=== PATIENT | male | born 1975 | race Caucasian/White ===

== ENCOUNTER 2019-04-11 12:53 | Emergency (ER) | payer OTHER ==
[2019-04-11] MEDS ORDERED: SODIUM CHLORIDE 0.9% 1,000 ML IV STA (13:34)
--- NOTE | 2019-04-11 13:45 | ED ---
General Adult HPI - General Chief complaint: Neuro Symptoms/Deficit Stated complaint: Headache Time Seen by Provider: 04/11/19 13:26 Source: patient, RN notes reviewed Mode of arrival: ambulatory Limitations: no limitations - History of Present Illness Initial comments: Patient is a pleasant 43-year-old male presenting to the emergency Department with headache. Symptoms have occurred several times over the past week. Patient does have history of chronic headaches however has been doing well for over a past year. Patient has had previous head CT for this. Had discomfort is mostly posterior. Discomfort is mild this time. Discomfort gets worse patient does have associated nausea and vomiting. Patient also has associated blurred vision and lightheadedness. Patient also has associated tingling of his arms and mouth. Both sides. No isolated area of weakness. No confusion. No fevers. - Related Data Home Medications Medication Instructions Recorded Confirmed No Known Home Medications 04/11/19 04/11/19 Allergies Allergy/AdvReac Type Severity Reaction Status Date / Time No Known Allergies Allergy Verified 04/11/19 13:20 Review of Systems ROS Statement: Those systems with pertinent positive or pertinent negative responses have been documented in the HPI. ROS Other: All systems not noted in ROS Statement are negative. Constitutional: Denies: fever Eyes: Reports: other (Blurred vision). Denies: eye pain ENT: Denies: ear pain Respiratory: Denies: cough Cardiovascular: Denies: chest pain Endocrine: Denies: fatigue Gastrointestinal: Reports: nausea, vomiting. Denies: abdominal pain Genitourinary: Denies: dysuria Musculoskeletal: Denies: back pain Skin: Denies: rash Neurological: Reports: as per HPI, headache, paresthesias. Denies: weakness, confusion Past Medical History Past Medical History: No Reported History History of Any Multi-Drug Resistant Organisms: None Reported Past Surgical History: No Surgical Hx Reported Past Psychological History: No Psychological Hx Reported Smoking Status: Never smoker Past Alcohol Use History: None Reported Past Drug Use History: Marijuana General Exam Limitations: no limitations General appearance: alert, in no apparent distress Head exam: Present: atraumatic, normocephalic Eye exam: Present: normal appearance, PERRL, EOMI. Absent: nystagmus ENT exam: Present: normal oropharynx Neck exam: Present: normal inspection. Absent: tenderness, meningismus Respiratory exam: Present: normal lung sounds bilaterally Cardiovascular Exam: Present: regular rate, normal rhythm GI/Abdominal exam: Present: soft. Absent: tenderness Extremities exam: Present: normal inspection Neurological exam: Present: alert, oriented X3, CN II-XII intact. Absent: motor sensory deficit Expanded Neurological exam: Present: protecting the airway Patient oriented to: Present: person, place, time Speech: Present: fluid speech Cranial nerves: EOM's Intact: Normal, Facial Sensation: Normal Cerebellar function: Finger to Nose: Normal Sensory exam: Upper Extremity Light Touch: Normal, Lower Extremity Light Touch: Normal Motor strength exam: RUE: 5, LUE: 5, RLE: 5, LLE: 5 Eye Response: (4) open spontaneously Motor Response: (6) obeys commands Verbal Response: (5) oriented Psychiatric exam: Present: normal affect, normal mood Skin exam: Present: normal color Course Vital Signs 04/11/19 13:03 Temperature 98.1 F Pulse Rate 85 Respiratory 16 Rate Blood Pressure 159/98 O2 Sat by Pulse 99 Oximetry Medical Decision Making - Medical Decision Making Patient reevaluated and resting comfortably in bed. Patient updated on results and need for follow-up. - Lab Data Result diagrams: 04/11/19 13:40 04/11/19 13:40 Lab Results 04/11/19 04/11/19 04/11/19 Range/Units 13:40 13:40 13:40 WBC 8.4 (3.8-10.6) k/uL RBC 4.96 (4.30-5.90) m/uL Hgb 15.9 (13.0-17.5) gm/dL Hct 47.5 (39.0-53.0) % MCV 95.7 (80.0-100.0) fL MCH 32.0 (25.0-35.0) pg MCHC 33.4 (31.0-37.0) g/dL RDW 14.3 (11.5-15.5) % Plt Count 268 (150-450) k/uL Neutrophils % 69 % Lymphocytes % 22 % Monocytes % 7 % Eosinophils % 1 % Basophils % 1 % Neutrophils # 5.7 (1.3-7.7) k/uL Lymphocytes # 1.8 (1.0-4.8) k/uL Monocytes # 0.6 (0-1.0) k/uL Eosinophils # 0.1 (0-0.7) k/uL Basophils # 0.1 (0-0.2) k/uL PT 11.1 (9.0-12.0) sec INR 1.0 (<1.2) APTT 25.8 (22.0-30.0) sec Sodium 141 (137-145) mmol/L Potassium 4.0 (3.5-5.1) mmol/L Chloride 106 (98-107) mmol/L Carbon Dioxide 24 (22-30) mmol/L Anion Gap 11 mmol/L BUN 12 (9-20) mg/dL Creatinine 0.88 (0.66-1.25) mg/dL Est GFR (CKD-EPI)AfAm >90 (>60 ml/min/1.73 sqM) Est GFR (CKD-EPI)NonAf >90 (>60 ml/min/1.73 sqM) Glucose 101 H (74-99) mg/dL Calcium 9.8 (8.4-10.2) mg/dL Total Bilirubin 0.9 (0.2-1.3) mg/dL AST 17 (17-59) U/L ALT 26 (21-72) U/L Alkaline Phosphatase 58 (38-126) U/L Total Protein 7.9 (6.3-8.2) g/dL Albumin 4.6 (3.5-5.0) g/dL - Radiology Data Radiology results: report reviewed (Computed tomography scan of the brain shows left knee for hypertension UA show in which could be artifact, this is confirmed with CT angios of the head and neck it is otherwise unremarkable. Hypoplasia right vertebral artery. no occlusion or aneurysm.) Disposition Clinical Impression: Headache Disposition: HOME SELF-CARE Condition: Stable Instructions (If sedation given, give patient instructions): Acute Headache (ED) Additional Instructions: Please follow-up with primary care physician in the next day or 2 for recheck. Please also follow-up with neurologist in the next couple days for recheck. Return for uncontrolled pain, weakness or confusion, worsening or changing symptoms or other concerns. Is patient prescribed a controlled substance at d/c from ED?: No Referrals: Terra Gaming MD [STAFF PHYSICIAN] - 1-2 days Dioni Farley MD [Medical Doctor] - 1-2 days Time of Disposition: 16:15
[2019-04-11 14:12] LABS: Basophils # (A) 0.1 k/uL (0-0.2); Basophils % (A) 1 %; Eosinophils # (A) 0.1 k/uL (0-0.7); Eosinophils % (A) 1 %; HCT 47.5 % (39.0-53.0); HGB 15.9 gm/dL (13.0-17.5); Lymphocytes # (A) 1.8 k/uL (1.0-4.8); Lymphocytes % (A) 22 %; MCHC 33.4 g/dL (31.0-37.0); MCV 95.7 fL (80.0-100.0); Mean Platelet Volume 7.6; Monocytes # (A) 0.6 k/uL (0-1.0); Monocytes % (A) 7 %; Neutrophils # (A) 5.7 k/uL (1.3-7.7); Neutrophils % (A) 69 %; Platelet Count 268 k/uL (150-450); RBC 4.96 m/uL (4.30-5.90); RDW 14.3 % (11.5-15.5); WBC 8.4 k/uL (3.8-10.6)
[2019-04-11 14:17] LABS: ALT 26 U/L (21-72); AST 17 U/L (17-59); African American GFR (CKD) >90 (>60 ml/min/1.73 sqM); Albumin 4.6 g/dL (3.5-5.0); Alkaline Phosphatase 58 U/L (38-126); Anion Gap 11 mmol/L; Blood Urea Nitrogen 12 mg/dL (9-20); Calcium 9.8 mg/dL (8.4-10.2); Carbon Dioxide 24 mmol/L (22-30); Chloride 106 mmol/L (98-107); Glucose 101 mg/dL (74-99); Sodium 141 mmol/L (137-145); Total Bilirubin 0.9 mg/dL (0.2-1.3); Total Protein 7.9 g/dL (6.3-8.2)
[2019-04-11 14:20] LABS: Partial Thromboplastin Time 25.8 sec (22.0-30.0); Prothrombin Time 11.1 sec (9.0-12.0)
--- NOTE | 2019-04-11 15:15 | CT ---
EXAMINATION TYPE: CT brain wo con DATE OF EXAM: 04/11/2019 COMPARISON: CT of the brain dated 01/11/2012 and MRI of the brain dated 01/22/2012 HISTORY: loss of vision when supine CT DLP: 1052 mGycm. Automated Exposure Control for Dose Reduction was Utilized. TECHNIQUE: CT scan of the head is performed without contrast. FINDINGS: Hyperattenuation in the left vertebral artery V4 segment with tortuosity. There is no acu te intracranial hemorrhage, mass effect, or midline shift identified. The ventricles and sulci are w ithin normal limits in size. The globes are intact and the visualized sinuses are clear. IMPRESSION: No acute intracranial hemorrhage, mass effect, or midline shift is seen. Left V4 hyperattenuation, which is best seen on axial image 9. Differential for these findings includ e posterior fossa artifact, dissection or occlusion. If symptoms persist, consider MRI of the brain w ithout contrast and MRA of the head and neck.
--- NOTE | 2019-04-11 15:43 | CT ---
EXAMINATION TYPE: CT angio head neck DATE OF EXAM: 04/11/2019 HISTORY: vision loss when supine COMPARISON: CT of the head from the same day CT DLP: 352 mGycm. Automated Exposure Control for Dose Reduction was Utilized. TECHNIQUE: CTA scan of the neck is performed with IV Contrast, patient injected with 50 mL of Isovue 370, axial images are obtained, coronal and sagittal reformatted images are reviewed. Three-D recons tructed images are created on an independent workstation and reviewed. FINDINGS: Carotid/Vascular Structures: Posterior the aorta appears are normal. Normal three-vessel takeoff. Ritesh ateral origins of the vertebral arteries are patent. Hypoplasia of the right vertebral artery. Bilate ral common carotid arteries are patent. Internal carotid arteries are patent. External carotid arteri es are patent. Previously described V4 abnormality demonstrates normal contrast enhancement and was r elated to posterior fossa artifact. Basilar artery is patent. Posterior cerebral arteries are patent. [place] appears patent. Other: Visualized upper lungs are clear. Neck soft tissues appear within normal limits. No enhancing lesion within the brain. IMPRESSION: V4 abnormality described on recent noncontrast CT of the head are related to posterior fossa artifact . Hypoplasia of the right vertebral artery. No occlusion or aneurysm.
[2019-04-11 16:26] VITALS: BP 138/90; PULSE 68; RESP 13; TEMP 98
== END 2019-04-11 16:19 | disposition home or self-care (01) ==
LOC: EC 12:53
DX: R51 Headache (principal); R11.2 Nausea with vomiting, unspecified; R42 Dizziness and giddiness; R20.2 Paresthesia of skin
CPT/HCPCS: 36415; 80053; 85025; 85610; 85730; 70496; 70450; 70498; 99284; 96360; Q9967

== ENCOUNTER 2021-02-24 03:11 | Emergency (ER) | payer OTHER ==
[2021-02-24 03:18] VITALS: RESP 16; TEMP 98.8
[2021-02-24] MEDS ORDERED: MORPHINE SULFATE 4 MG/ML SYRINGE IV STA (03:22)
[2021-02-24] MEDS ORDERED: KETOROLAC 15 MG/ML 1 ML VIAL IVP STA (03:22)
[2021-02-24] MEDS ORDERED: SODIUM CHLORIDE 0.9% 1,000 ML IV STA (03:22)
--- NOTE | 2021-02-24 03:34 | ED ---
Abdominal Pain HPI - General Chief Complaint: Abdominal Pain Stated Complaint: Flank pain Time Seen by Provider: 02/24/21 03:22 Source: patient, EMS Mode of arrival: EMS Limitations: no limitations - Related Data Home Medications Medication Instructions Recorded Confirmed No Known Home Medications 04/11/19 04/11/19 Allergies Allergy/AdvReac Type Severity Reaction Status Date / Time No Known Allergies Allergy Verified 02/24/21 03:47 Review of Systems ROS Statement: Those systems with pertinent positive or pertinent negative responses have been documented in the HPI. ROS Other: All systems not noted in ROS Statement are negative. Past Medical History Past Medical History: No Reported History History of Any Multi-Drug Resistant Organisms: None Reported Past Surgical History: No Surgical Hx Reported Past Psychological History: No Psychological Hx Reported Smoking Status: Never smoker Past Alcohol Use History: None Reported Past Drug Use History: Marijuana General Exam Limitations: no limitations Course Vital Signs 02/24/21 02/24/21 03:12 04:22 Temperature 98.8 F Pulse Rate 73 60 Respiratory 16 16 Rate Blood Pressure 161/109 110/77 O2 Sat by Pulse 100 98 Oximetry Medical Decision Making - Lab Data Result diagrams: 02/24/21 03:35 02/24/21 03:35 Lab Results 02/24/21 02/24/21 Range/Units 03:35 03:35 WBC 16.1 H (3.8-10.6) k/uL RBC 4.47 (4.30-5.90) m/uL Hgb 14.5 (13.0-17.5) gm/dL Hct 41.5 (39.0-53.0) % MCV 93.0 (80.0-100.0) fL MCH 32.5 (25.0-35.0) pg MCHC 34.9 (31.0-37.0) g/dL RDW 11.9 (11.5-15.5) % Plt Count 230 (150-450) k/uL MPV 7.4 Neutrophils % 87 % Lymphocytes % 7 % Monocytes % 5 % Eosinophils % 1 % Basophils % 0 % Neutrophils # 14.0 H (1.3-7.7) k/uL Lymphocytes # 1.1 (1.0-4.8) k/uL Monocytes # 0.8 (0-1.0) k/uL Eosinophils # 0.2 (0-0.7) k/uL Basophils # 0.0 (0-0.2) k/uL Sodium 136 L (137-145) mmol/L Potassium 3.9 (3.5-5.1) mmol/L Chloride 105 (98-107) mmol/L Carbon Dioxide 23 (22-30) mmol/L Anion Gap 8 mmol/L BUN 13 (9-20) mg/dL Creatinine 1.07 (0.66-1.25) mg/dL Est GFR (CKD-EPI)AfAm >90 (>60 ml/min/1.73 sqM) Est GFR (CKD-EPI)NonAf 85 (>60 ml/min/1.73 sqM) Glucose 144 H (74-99) mg/dL Calcium 9.2 (8.4-10.2) mg/dL Total Bilirubin 0.9 (0.2-1.3) mg/dL AST 24 (17-59) U/L ALT 15 (4-49) U/L Alkaline Phosphatase 52 (38-126) U/L Total Protein 7.0 (6.3-8.2) g/dL Albumin 4.2 (3.5-5.0) g/dL Amylase 47 (30-110) U/L Lipase 71 (23-300) U/L Disposition Clinical Impression: Abdominal pain, Left ureteral stone Disposition: HOME SELF-CARE Condition: Good Instructions (If sedation given, give patient instructions): Kidney Stones (ED) Is patient prescribed a controlled substance at d/c from ED?: No Referrals: None,Stated [Primary Care Provider] - 1-2 days
[2021-02-24] MEDS ORDERED: PROCHLORPERAZINE INJ 10 MG/2 ML VIAL IVP STA (03:37)
[2021-02-24 03:41] LABS: Basophils % (A) 0 %; Eosinophils # (A) 0.2 k/uL (0-0.7); Eosinophils % (A) 1 %; HCT 41.5 % (39.0-53.0); HGB 14.5 gm/dL (13.0-17.5); Lymphocytes # (A) 1.1 k/uL (1.0-4.8); Lymphocytes % (A) 7 %; MCH 32.5 pg (25.0-35.0); MCHC 34.9 g/dL (31.0-37.0); Mean Platelet Volume 7.4; Monocytes # (A) 0.8 k/uL (0-1.0); Monocytes % (A) 5 %; Neutrophils % (A) 87 %; Platelet Count 230 k/uL (150-450); RBC 4.47 m/uL (4.30-5.90); RDW 11.9 % (11.5-15.5); WBC 16.1 k/uL (3.8-10.6)
[2021-02-24 03:55] LABS: ALT 15 U/L (4-49); AST 24 U/L (17-59); African American GFR (CKD) >90 (>60 ml/min/1.73 sqM); Albumin 4.2 g/dL (3.5-5.0); Alkaline Phosphatase 52 U/L (38-126); Amylase 47 U/L (30-110); Anion Gap 8 mmol/L; Blood Urea Nitrogen 13 mg/dL (9-20); Calcium 9.2 mg/dL (8.4-10.2); Carbon Dioxide 23 mmol/L (22-30); Chloride 105 mmol/L (98-107); Glucose 144 mg/dL (74-99); Lipase 71 U/L (23-300); Non-African American GFR(CKD) 85 (>60 ml/min/1.73 sqM); Potassium 3.9 mmol/L (3.5-5.1); Sodium 136 mmol/L (137-145); Total Bilirubin 0.9 mg/dL (0.2-1.3)
--- NOTE | 2021-02-24 04:19 | CT ---
EXAMINATION TYPE: CT abdomen pelvis wo con DATE OF EXAM: 02/24/2021 COMPARISON: None HISTORY: Abd Pain CT DLP: 411.60 mGycm Automated exposure control for dose reduction was used. Images obtained from the diaphragm to the floor the pelvis with no contrast. Lung bases are clear. There is no pleural effusion. Heart size is normal. There is no pericardial eff usion. Liver spleen stomach pancreas gallbladder appear intact. The bile ducts are not dilated. There is no adrenal mass. Kidneys have normal size. There is 3 mm calculus upper pole right kidney. T here appears to be some left side hydronephrosis and hydroureter. Left ureter is not well seen. There is some mild stranding around the left kidney. There is 3 mm calcification on image 110 that could b e a ureteral calculus in the mid pelvis. There is 3 mm calcification on image 129 and could be a calc ulus in the distal left ureter. The bladder distends smoothly. There is no inguinal hernia. There is no mesenteric edema. There is no ascites or free air. There is no bowel obstruction. The rosalinda endix is partly filled with air and appears normal. The lumbar vertebra have normal alignment. Disc spaces are fairly normal. Bony pelvis is intact. Hip joints appear intact. There is no hip dysplasia. IMPRESSION: Mild left side hydronephrosis. There is 2 calcifications on the left side that are possible ureteral calculi in the mid pelvis and at the distal ureter. Normal appendix. Nonobstructing right renal calculus.
[2021-02-24 04:24] VITALS: BP 110/77; PULSE 60
[2021-02-24] MEDS ORDERED: TAMSULOSIN 0.4 MG CAP.ER.24H PO STA (04:30)
[2021-02-24] MEDS ORDERED: IBUPROFEN 600 MG STARTER PACK 4 TAB BTL PO STA (04:30)
[2021-02-24] MEDS ORDERED: ACET/COD 300 MG/30 MG STARTER PACK 6 TAB BTL PO STA (04:30)
[2021-02-24 05:11] LABS: Amorphous Sediment,Urine Rare /hpf; Appearance,Urine Turbid (Clear); Bilirubin,Urine Negative (Negative); Blood,Urine Small (Negative); Color,Urine Yellow; Glucose,Urine (UA) Trace (Negative); Ketones,Urine 1+ (Negative); Leukocyte Esterase,Urine Negative (Negative); Mucus,Urine Rare /hpf; Nitrite,Urine Negative (Negative); PH, Urine 7.5 (5.0-8.0); Protein,Urine Trace (Negative); RBC,Urine 3 /hpf (0-5); Specific Gravity,Urine 1.022 (1.001-1.035); Urobilinogen,Urine <2.0 mg/dL (<2.0); WBC,Urine 1 /hpf (0-5)
== END 2021-02-24 04:40 | disposition home or self-care (01) ==
LOC: EC 03:11
DX: N13.2 Hydronephrosis with renal and ureteral calculous obstruction (principal); F12.90 Cannabis use, unspecified, uncomplicated
CPT/HCPCS: 36415; 80053; 82150; 83690; 85025; 81001; 74176; 99284; 96374; 96375; J0780; J1885